=== PATIENT | male | born 1970 | race Caucasian/White ===

== ENCOUNTER 2020-12-22 21:01 | Emergency (ER) | payer OTHER ==
[~2020-12-22 21:01] MED LIST: CYCLOBENZAPRINE10 MG PO
[2020-12-22 22:03] LABS: HEMOGLOBIN 15.1 gm/dl (14.0-17.5); RED BLOOD COUNT 5.02 M/UL (4.20-5.50); WHITE BLOOD COUNT 9.4 K/UL (4.5-11.0)
[2020-12-22 22:39] LABS: BUN/CREATININE RATIO 14 (0-10)
== END 2020-12-23 03:00 | disposition home or self-care (01) ==
LOC: ER1 21:01
PROVIDERS: Physician Assistant
DX: E11.9 Type 2 diabetes mellitus without complications (principal); I25.10 Atherosclerotic heart disease of native coronary artery without angina pectoris; R07.9 Chest pain, unspecified
CPT/HCPCS: 71045; 80053; 82009; 82550; 82553; 82800; 82962; 83735; 83874; 83880; 84484; 85025; 93005; 99285

== ENCOUNTER → 2021-09-26 | Outpatient (CLI) | payer SELFPAY | LOC: LAB 13:45 | DX: N46.9 Male infertility, unspecified (principal) | CPT/HCPCS: 89310 ==